=== PATIENT | male | born 1980 | race African-American/Black ===

== ENCOUNTER 2016-11-04 14:21 | Emergency (ER) | payer OTHER ==
[~2016-11-04] VITALS: Ht 188 cm; Wt 226.8 kg
--- NOTE | ~2016-11-04 | EKG ---
[address] [place] [address] ELECTROCARDIOGRAM REPORT Name: JUNI SLADE Room #: REG ABDULLAHI Carty#: [id number] Admission: 11/04/16 Attend Phys: Discharge: Date of : 84 Report #: [id number] THIS REPORT FOR: //name// [facility] ED Test Date: 2016-11-04 Test Time: 14:56:50 Pat Name: JUNI SLADE Department: Room: Gender: [employer] Attendant: LEIGHTON : 1980 Requested By: Burt Rivers Order Number: [id number] MD: Garfield Thurman Measurements Intervals [place] Rate: 73 P: 8 GA: 173 QRS: 261 QRSD: 124 T: 62 QT: 407 QTc: 449 Interpretive Statements Sinus rhythm Nonspecific IVCD with LAD No previous ECG available for comparison Electronically Signed On 11-04-2016 16:00:39 CDT by Garfield Thurman [email or web address] <ELECTRONICALLY SIGNED> By: Garfield Thurman MD 11/04/16 1600 1456 1456 Garfield Thurman MD /GERARD
[2016-11-04] MEDS ORDERED: LEXAPRO 10 MG T10 M2 PO (14:29)
[2016-11-04 14:50] LABS: HEMATOCRIT 34.5 % (42.0-52.0); HEMOGLOBIN 11.6 gm/dL (14.0-18.0); MCH 23.7 pg (26.0-34.0); MCHC 33.6 g/dL (28.0-37.0); MCV 70.6 fL (80.0-100.0); RBC 4.88 mil/uL (4.50-6.00); RDW 16.7 % (10.5-14.5); WBC 9.6 thou/uL (4.0-11.0)
[2016-11-04 14:59] LABS: ANION GAP 8 mmol/L (7-16); BUN 10 mg/dL (7-18); CALCIUM 8.9 mg/dL (8.5-10.1); CHLORIDE 103 mmol/L (98-107); CO2 28 mmol/L (21-32); CREATININE 0.9 mg/dL (0.7-1.3); GLUCOSE 89 mg/dL (74-106); POTASSIUM 3.7 mmol/L (3.5-5.1); SODIUM 139 mmol/L (136-145)
[2016-11-04 15:07] LABS: TROPONIN-I < 0.04 ng/mL (<0.04-0.07)
[2016-11-04 17:19] VITALS: BP 132/86
== END 2016-11-04 17:22 | disposition home or self-care (01) ==
LOC: ER 14:21
PROVIDERS: Emergency Medicine
DX: R42 Dizziness and giddiness (principal); G57.11 Meralgia paresthetica, right lower limb; F32.9 Major depressive disorder, single episode, unspecified; G47.30 Sleep apnea, unspecified